=== PATIENT | male | born 1990 | race Hispanic/Latino ===

== ENCOUNTER 2024-11-29 09:31 | Emergency (ER) | payer OTHER ==
--- NOTE | 2024-11-29 09:47 | ERPHSYRPT ---
- History of Present Illness Physician History: Presents with left index finger injury, patient was changing a toilet out, apparently the porcelain had broken and cut his distal phalanx of his index finger, Tetanus not up-to-date Occurred: just prior to arrival Method of Injury: incised Extremities Pain Location: 2nd finger: right Associated Symptoms: none Allergies/Adverse Reactions: No Known Drug Allergies Allergy (Verified 11/29/24 09:48) Home Medications: LORazepam [Lorazepam] 2 mg PO BID 11/29/24 [History] - Nursing Vital Signs Nursing Vital Signs: Initial Vital Signs Temperature 96.8 F 11/29/24 09:38 Pulse Rate 101 H 11/29/24 09:38 Blood Pressure 123/89 11/29/24 09:38 O2 Sat by Pulse Oximetry 98 11/29/24 09:38 Pain Scale Pain Intensity 4 - Physical Exam General Appearance: no apparent distress, alert Eyes, Ears, Nose, Throat Exam: normal ENT inspection Hand Exam: laceration (Laceration to the radial aspect of the distal phalanx with no involvement of the nailbed; 1.8cm) Neuro/Tendon Exam: normal motor functions, normal tendon functions Mental Status Exam: alert, oriented x 3, cooperative Skin Exam: normal color, warm Procedures - Laceration/Wound Repair Left Distal Finger Time of Procedure: 11:06 Wound Location: Left, hand (index finger) Wound Length (cm): 1.8 Wound's Depth, Shape: flap Wound Explored: clean Irrigated: No Hibiclens Prep: Yes Anesthesia: digital block, 1% Lidocaine Volume Anesthetic (ccs): 8 Wound Repaired With: sutures Suture Size/Type: 5-0, nylon Number of Sutures: 4 Layer Closure?: No Sterile Dressing Applied?: Yes Splint Applied?: No Sling Applied?: No Ordered Tests: Medication Summary Discontinued Medications Generic Name Dose Route Start Last Admin Trade Name Freq PRN Reason Stop Dose Admin Diphtheria/Tetanus/Acell Pertussis 0.5 ml 11/29/24 09:52 11/29/24 09:56 Tdap --Diph,Pertuss(Acell),Tet Vac/Pf 0.5 Ml Vial IM 11/29/24 09:53 0.5 ml .ONCE ONE Administration Diphtheria/Tetanus/Acell Pertussis Confirm 11/29/24 09:54 Tdap --Diph,Pertuss(Acell),Tet Vac/Pf 0.5 Ml Vial Administered 11/29/24 09:55 Dose 0.5 ml IM .STK-MED ONE Lidocaine HCl 10 ml 11/29/24 09:48 11/29/24 09:57 Lidocaine Hcl 1% 20 Ml Mdv 20 Ml Ml IJ 11/29/24 09:49 10 ml STAT ONE Administration Lidocaine HCl Confirm 11/29/24 09:53 Lidocaine Hcl 1% 20 Ml Mdv 20 Ml Ml Administered 11/29/24 09:54 Dose 10 ml .ROUTE .STK-MED ONE - Progress Progress Note: 11/29/24 11:08 Laceration repair, 4 sutures 5-0 nylon interrupted fashion, Outpatient follow-up - Departure Departure Disposition: Home Clinical Impression: Laceration of left index finger Qualifiers: Encounter type: initial encounter Damage to nail status: without damage Foreign body presence: without foreign body Qualified Code(s): S61.211A - Laceration without foreign body of left index finger without damage to nail, initial encounter Condition: Stable Critical Care Time: No Referrals: CAMILLA BUSH PA [Primary Care Provider, UNKNOWN] - Follow up/PCP as directed Instructions: Laceration Repair With Stitches (DC) Additional Instructions: Sutures out 12-14 days, Do not soak in water, you may wash the area Prescriptions: cefaDROXiL [Cefadroxil] 500 mg PO BID #14 cap
[2024-11-29 09:48] VITALS: BP 123/89; PULSE 101; TEMP 96.8; O2SAT 98
[2024-11-29] MEDS ORDERED: XYLOCAINE 1% HCL 20 ML MDV ONE (09:53)
[2024-11-29] MEDS ORDERED: Adacel Vial IM ONE (09:54)
[2024-11-29] MEDS: Adacel Vial IM ONE (09:56)
[2024-11-29] MEDS: XYLOCAINE 1% HCL 20 ML MDV IJ ONE (09:57)
[2024-11-29] MEDS ORDERED: BACIGUENT PACKET ONE (11:19)
== END 2024-11-29 11:33 | disposition home or self-care (01) ==
LOC: ED 09:31
DX: S61.211A Laceration without foreign body of left index finger without damage to nail, initial encounter (principal); W26.8XXA Contact with other sharp object(s), not elsewhere classified, initial encounter; Z79.899 Other long term (current) drug therapy; Z23 Encounter for immunization